=== PATIENT | male | born 1975 | race African-American/Black ===

== ENCOUNTER 2017-08-26 14:02 | Emergency (ER) | payer BC ==
[~2017-08-26] VITALS: Ht 172.7 cm; Wt 94.3 kg
--- NOTE | ~2017-08-26 | EKG ---
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
[~2017-08-26 14:02] MED LIST: DENIES
[2017-08-26] MEDS ORDERED: CARAFATE 1 GM TA1 G1 PO (15:16)
[2017-08-26] MEDS ORDERED: PRILOSEC 20 MG20 MG PO (15:16)
== END 2017-08-26 15:46 | disposition home or self-care (01) ==
LOC: ER 14:02
DX: K21.9 Gastro-esophageal reflux disease without esophagitis (principal); K29.00 Acute gastritis without bleeding; Z88.6 Allergy status to analgesic agent